=== PATIENT | male | born 1955 | race Caucasian/White ===

== ENCOUNTER → 2016-11-03 08:50 | Outpatient (CLI) | payer BC | END | disposition home or self-care (01) | LOC: D.MRI 10-28 14:00 | DX: M25.531 Pain in right wrist (principal); M25.511 Pain in right shoulder ==

== ENCOUNTER → 2020-12-02 12:24 | Outpatient (CLI) | payer OTHER | END | disposition home or self-care (01) | LOC: D.HCCECHO 12:24 | PROVIDERS: ATTEND Internal Medicine Cardiovascular Disease | DX: I34.0 Nonrheumatic mitral (valve) insufficiency (principal) ==